=== PATIENT | female | born 1980 | race African-American/Black ===

== ENCOUNTER 2017-01-02 10:41 | Emergency (ER) | payer OTHER ==
[~2017-01-02] VITALS: Ht 157.5 cm; Wt 79.4 kg
[~2017-01-02 10:41] MED LIST: AZITHROMYCIN 2250 MG PO; CLEOCIN HCL150 MG PO; IBUPROFEN 800800 MG PO; NOHOMEMEDICATIONS; NORCO 5-325 TA1 EACH PO; PREDNISONE50 MG PO; PROAIR HFA8.5 GM IH; TUSSIONEX PENN473 ML PO; ZPAK PO
[2017-01-02 10:45] VITALS: BP 154/80
[2017-01-02] MEDS ORDERED: PROAIR HFA8.5 GM INH (11:23)
[2017-01-02] MEDS ORDERED: TUSSIONEX PENN473 ML PO (11:23)
[2017-01-02] MEDS ORDERED: PREDNISONE 20 M20 MG PO (11:23)
[2017-01-02] MEDS ORDERED: FLONASE 0.05%50 MCG NASAL (11:23)
== END 2017-01-02 11:48 | disposition home or self-care (01) ==
LOC: ER 10:41
DX: J06.9 Acute upper respiratory infection, unspecified (principal); J45.909 Unspecified asthma, uncomplicated; Z88.0 Allergy status to penicillin; F17.210 Nicotine dependence, cigarettes, uncomplicated; F10.99 Alcohol use, unspecified with unspecified alcohol-induced disorder

== ENCOUNTER 2017-01-07 19:50 | Inpatient (IN) | payer OTHER ==
[~2017-01-07] VITALS: Ht 157.5 cm; Wt 79.4 kg
--- NOTE | ~2017-01-07 | EKG ---
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 : 1980 Requested By: Ihsan Cole Order Number: [id number] MD: Justino Pierce Measurements Intervals [place] Rate: 116 P: 43 SC: 158 QRS: 6 QRSD: 104 T: 135 QT: 328 QTc: 456 Interpretive Statements Sinus tachycardia Probable left atrial enlargement LVH with secondary repolarization abnormality Baseline wander in lead(s) V4 Compared to ECG 08/02/2013 07:06:[address] and T wave abnormality is more pronounced Electronically Signed On 01-09-2017 8:37:36 CDT by Justino Pierce [email or web address] <ELECTRONICALLY SIGNED> By: Justino Pierce MD, FACC 01/09/17 0837 33 33 Justino Pierce MD, [facility] /EPI
--- NOTE | ~2017-01-07 | 2DMMODE ---
[facility] [address] [place] [address] 2 D/M-MODE ECHOCARDIOGRAM Name: THERESA COTTRELL Room #: 302-P [facility] IN .R.#: [id number] Admission: 01/08/17 Attend Phys: Cj Mario Discharge: Date of : 78 Date of Service: 01/08/17 1324 Report #: [id number] THIS REPORT FOR: //name// APPROVED REPORT Study performed: 01/08/2017 11:57:50 EXAM: Comprehensive 2D, Doppler, and color-flow Echocardiogram Patient Location: Bedside Room #: 302 Blood Pressure: 131/77 mmHg HR: 86 bpm Other Information Study Quality: Good Indications COPD Dyspnea Cardiomegaly 2D Dimensions RVDd: 44.99 mm LVEF(%): 45.83 (>50%) IVSd: 7.90 (7-11mm) LVOT Diam: 22.09 (18-24mm) LVDd: 59.84 mm PWd: 7.40 (7-11mm) Ascending Ao: 28.56 (22-36mm) LVDs: 45.91 (25-40mm) Aortic Root: 27.60 mm IVC: 23.00 mm Urbina's LVEF: 45.83 % Volumes Left Atrial Volume (Systole) Single Plane 4CH: 111.70 mL Single Plane 2CH: 73.18 mL LA ESV Index: 54.00 mL/m2 Aortic Valve AoV Peak Isidoro.: 1.64 m/s AO Peak Gr.: 10.76 mmHg LVOT Max P.67 mmHg LVOT Max V: 1.19 m/s Mitral Valve E/A Ratio: 2.2 [facility] [place] [address] 2 D/M-MODE ECHOCARDIOGRAM Name: THERESA COTTRELL Room #: 302-P [facility] IN [facility]#: [id number] Admission: 01/08/17 Attend Phys: Cj Mario Discharge: Date of : 78 Date of Service: 01/08/17 1324 Report #: [id number] MV Decel. Time: 200.84 ms MV E Max Isidoro.: 1.32 m/s MV A Isidoro.: 0.59 m/s MV PHT: 58.24 ms Pulmonary Valve PV Peak Isidoro.: 1.12 m/s PV Peak Gr.: 5.02 mmHg VA End Vmax: 1.40 m/s Pulmonary Vein P Vein S: 55.2 m/s P Vein D: 77.4 m/s P Vein A Dur.: 20.5 m/s Tricuspid Valve TR Peak Isidoro.: 4.10 m/s RAP Estimate: 10.00 mmHg TR Peak Gr.: 67.37 mmHg Left Ventricle Left ventricle is mildly dilated. There is normal left ventricular wall thickness. Left ventricular systolic function is borderline low-normal. LVEF is 50%. Right Ventricle Right ventricle is mildly dilated. The right ventricular systolic function is normal. Atria Left atrium is mildly dilated. Right atrium is at the upper limits of normal. Aortic Valve The aortic valve is normal in structure. No aortic regurgitation is present. There is no aortic valvular stenosis. Mitral Valve The mitral valve is normal in structure. Mild mitral regurgitation. No evidence of mitral valve stenosis. Tricuspid Valve The tricuspid valve is normal in structure. There is mild to moderate tricuspid regurgitation. The right atrial pressure is estimated at 10 mmHg. There is severe pulmonary hypertension. The estimated PAP was 77 mmHg. Pulmonic Valve The pulmonary valve is normal in structure. There is no pulmonic [address] [address] 2 D/M-MODE ECHOCARDIOGRAM Name: THERESA COTTRELL Room #: 302-P [facility] IN ..#: [id number] Admission: 01/08/17 Attend Phys: Cj Mario Discharge: Date of : 78 Date of Service: 01/08/17 1324 Report #: [id number] valvular regurgitation. Great Vessels The aortic root is normal in size. IVC is dilated and collapses <50% with inspiration. Pericardium There is no pericardial effusion. <Conclusion> Left ventricle is mildly dilated. Left ventricular systolic function is borderline low-normal. LVEF is 50%. Right ventricle is mildly dilated. Left atrium is mildly dilated. Mild mitral regurgitation. There is mild to moderate tricuspid regurgitation. The right atrial pressure is estimated at 10 mmHg. There is severe pulmonary hypertension. The estimated PAP was 77 mmHg. <ELECTRONICALLY SIGNED> By: Jace Gaming MD 01/08/17 1324 1324 1324 Jace Gaming MD /INF
--- NOTE | ~2017-01-07 | HC ---
[facility] [place] [address] CONSULTATION Name: SIMBATHERESA Corona Room #: 302-P [facility] IN M.R.#: [id number] Admission: 01/08/17 Attend Phys: Steve Mac MD Discharge: 01/12/17 Date of : 78 Report #: [id number] THIS REPORT FOR: //name// CC: NANY physician/PCP Yovani Mac DATE OF SERVICE: 01/09/2017 REFERRING PROVIDER: Dr. Steve Mac. REASON FOR CONSULTATION: Shortness of breath and pulmonary hypertension. HISTORY OF PRESENT ILLNESS: Our group was asked to see the patient in consultation while hospitalized at [facility]. A 36-year-old woman with a history of persistent asthma, which she states is well controlled on Qvar twice daily with as needed p.r.n. albuterol, easily exacerbated by change in seasons; however, has presented 3 times now to the emergency department with complaints of shortness of breath, some significant cough and was subsequently admitted for further evaluation on this admission for community-acquired pneumonia. She has a history of hyperthyroidism consistent with Graves' disease, previously manage elsewhere. Has also noted significant weight loss, fatigue, and periods of diaphoresis and tachycardia. She states that this is one of the other reasons that brought her into the emergency department. An echocardiogram revealed significant pulmonary hypertension with pulmonary artery systolic pressure of 70. We were asked to further evaluate. No HIV risk factors that she is aware of. No prior known history of pulmonary hypertension or cardiac diseases. OUTPATIENT MEDICATIONS: Include Flonase, Qvar, albuterol, and Tussionex. PAST MEDICAL HISTORY: 1. History of hyperthyroidism, what sounds like Grave's disease. 2. History of mild persistent asthma. 3. Ongoing tobacco use. PAST SURGICAL HISTORY: Include axillary lymph node biopsy. SOCIAL HISTORY: The patient had been an active smoker until about 2 weeks ago. No alcohol consumption. 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 FAMILY HISTORY: Significant for paternal grandmother with Graves' disease. REVIEW OF SYSTEMS: CONSTITUTIONAL: Some weight loss, occasional sweats, fever. [facility] [address] [place] [address] CONSULTATION Name: SIMBATHERESA Room #: 302-P [facility] IN .R.#: [id number] Admission: 01/08/17 Attend Phys: Steve Mac MD Discharge: 01/12/17 Date of : 78 Report #: [id number] ENT: No upper respiratory congestion. Has had some hoarseness to her voice and mild dysphagia at times. CARDIOVASCULAR: Occasional chest pains, palpitations. GASTROINTESTINAL: Occasional abdominal discomfort, diarrhea. GENITOURINARY: No dysuria, frequency, or hematuria. INTEGUMENT: Denies any rash. MUSCULOSKELETAL: Some generalized weakness and muscle aches. 12-point review of systems recently normal. PHYSICAL EXAMINATION: VITAL SIGNS: Afebrile, pulse 90s, respiratory rate 24, blood pressure 134/72, and oxygen saturation 100%. GENERAL: This is a middle-aged woman in no apparent distress. HEENT: Clear oropharynx, Mallampati 2 airway. NECK: Supple, no lymphadenopathy, denies any stridor. LUNGS: Relatively clear. No wheezes or crackles. CARDIOVASCULAR: Heart was tachycardic with lot of P2 component. No other murmurs noted. ABDOMEN: Soft, nontender, no masses. EXTREMITIES: Warm, 2+ pulses, no edema. LABORATORY DATA: Chemistry profile essentially within reason limits. Glucose of 123 and magnesium 1.5. ProBNP is 1603. White blood cell count 9000, hemoglobin 11, hematocrit 33, platelet count 208. INR 1.3. Chest x-ray reveals significant cardiomegaly. IMPRESSION: 1. Severe pulmonary hypertension, likely related to Graves' disease, but cannot rule out another autoimmune process. Would certainly need to rule out venous thromboembolism as well as other disorders. 2. Asthma with acute exacerbation. 3. Severe hyperthyroidism. RECOMMENDATIONS: 1. When able, check pulmonary emboli imaging study, preferably ventilation perfusion scan. 2. Lower extremity venous Dopplers. 3. Connective tissue screen including ANCA, RF, RICK, ESR. 4. Consider checking HIV. 5. Continue with systemic steroids. 6. P.r.n. albuterol. 7. Inhaled steroids with budesonide. 8. [place] [address] CONSULTATION Name: THERESA COTTRELL Room #: 302-P DIS IN M.R.#: [id number] Admission: 01/08/17 Attend Phys: Steve Mac MD Discharge: 01/12/17 Date of : 78 Report #: [id number] Thank you for requesting our suggestions. <ELECTRONICALLY SIGNED> By: Andrew Christina MD 01/16/17 1331 1910 1224 Andrew Christina MD /nt
[~2017-01-07 19:50] MED LIST changes: +FLONASE 0.05%50 MCG NASAL; +PREDNISONE 20 M20 MG PO; +PROAIR HFA8.5 GM INH
[2017-01-07 20:03] VITALS: BP 139/82
[2017-01-07 21:04] LABS: ABSOLUTE NEUTROPHILS 3.8 thou/uL (1.4-8.2); BASOPHILS 0.2 % (0.0-2.0); EOSINOPHILS 0.9 % (0.0-3.0); HEMATOCRIT 32.5 % (37.0-47.0); HEMOGLOBIN 10.6 gm/dL (12.0-15.0); LYMPHOCYTES 49.9 % (24.0-44.0); MCH 24.8 pg (26.0-34.0); MCHC 32.7 g/dL (28.0-37.0); MCV 75.9 fL (80.0-100.0); MONOCYTES 8.4 % (1.0-8.0); PLATELET COUNT 208 thou/uL (150-400); POLYS 40.6 % (36.0-66.0); RBC 4.29 mil/uL (4.20-5.00); RDW 15.4 % (10.5-14.5); WBC 9.2 thou/uL (4.0-11.0)
[2017-01-07 21:07] LABS: ANION GAP 9 mmol/L (7-16); BUN 5 mg/dL (7-18); CALCIUM 8.6 mg/dL (8.5-10.1); CHLORIDE 106 mmol/L (98-107); CO2 25 mmol/L (21-32); CREATININE 0.6 mg/dL (0.6-1.0); GLUCOSE 123 mg/dL (74-106); POTASSIUM 3.8 mmol/L (3.5-5.1); SODIUM 140 mmol/L (136-145)
[2017-01-07 21:08] LABS: MANUAL DIFF NO
[2017-01-07 21:15] LABS: APTT 25.9 Seconds (24.5-32.8); INR 1.3; PROTIME 13.4 Seconds (9.3-11.4)
[2017-01-07 21:18] LABS: ALBUMIN 2.8 g/dL (3.4-5.0); ALKALINE PHOSPHATASE 95 U/L (46-116); MAGNESIUM 1.5 mg/dL (1.8-2.4); NT-PRO BRAIN NAT PEPTIDE 1603 pg/mL (<300); SGOT 14 U/L (15-37); SGPT 20 U/L (30-65); TOTAL BILIRUBIN 0.3 mg/dL (<0.1-1.0); TOTAL PROTEIN 6.8 g/dL (6.4-8.2); TROPONIN-I < 0.04 ng/mL (<0.04-0.07)
[2017-01-07] MEDS ORDERED: ZOFRAN ODT8 MG PO (22:28)
[2017-01-07] MEDS ORDERED: DOXYCYCLINE 10100 MG PO (22:28)
[2017-01-08] VITALS (7 sets, daily range): BP systolic 126–139; BP diastolic 65–77
[2017-01-08 16:07] LABS: FREE T4 5.46 ng/dL (0.82-1.77)
[2017-01-09 04:10] VITALS: BP 138/79
[2017-01-09 07:54] VITALS: BP 141/73
[2017-01-09 11:33] VITALS: BP 127/64
[2017-01-09 16:20] VITALS: BP 134/72
[2017-01-09 20:00] VITALS: BP 131/86
[2017-01-10] VITALS (7 sets, daily range): BP systolic 117–163; BP diastolic 61–99
[2017-01-10 11:09] LABS: FREE T3 20.1 pg/mL (2.0-4.4)
[2017-01-11 03:30] VITALS: BP 145/83
[2017-01-11 06:21] LABS: HEMATOCRIT 34.8 % (37.0-47.0); HEMOGLOBIN 11.2 gm/dL (12.0-15.0); MCH 24.5 pg (26.0-34.0); MCHC 32.1 g/dL (28.0-37.0); MCV 76.5 fL (80.0-100.0); PLATELET COUNT 214 thou/uL (150-400); RBC 4.56 mil/uL (4.20-5.00); RDW 15.3 % (10.5-14.5); WBC 8.8 thou/uL (4.0-11.0)
[2017-01-11 06:22] LABS: MANUAL DIFF YES
[2017-01-11 08:13] VITALS: BP 127/82
[2017-01-11 08:30] LABS: TOTAL CELL COUNT 100
[2017-01-11 08:31] LABS: ABSOLUTE NEUTROPHILS 2.6 thou/uL (1.4-8.2); ANISOCYTOSIS 1+; ATYPICAL LYMPHS 3 %; OVALOCYTES FEW
[2017-01-11 13:30] VITALS: BP 122/70
[2017-01-11 16:09] LABS: c-ANCA <1:20 titer (Neg:<1:20); p-ANCA <1:20 titer (Neg:<1:20)
[2017-01-11 16:57] VITALS: BP 129/79
[2017-01-11 19:25] VITALS: BP 132/78
[2017-01-12 03:40] VITALS: BP 120/66
[2017-01-12 05:20] LABS: HEMATOCRIT 33.9 % (37.0-47.0); HEMOGLOBIN 11.3 gm/dL (12.0-15.0); MCH 25.2 pg (26.0-34.0); MCHC 33.2 g/dL (28.0-37.0); MCV 75.7 fL (80.0-100.0); PLATELET COUNT 208 thou/uL (150-400); RBC 4.47 mil/uL (4.20-5.00); RDW 14.9 % (10.5-14.5); WBC 9.5 thou/uL (4.0-11.0)
[2017-01-12 05:26] LABS: MANUAL DIFF YES
[2017-01-12 05:30] LABS: CALCIUM 8.7 mg/dL (8.5-10.1); CREATININE 0.3 mg/dL (0.6-1.0); POTASSIUM 3.7 mmol/L (3.5-5.1)
[2017-01-12 07:34] LABS: ABSOLUTE NEUTROPHILS 3.9 thou/uL (1.4-8.2); ATYPICAL LYMPHS 2 %; TOTAL CELL COUNT 100
[2017-01-12 07:35] LABS: ANISOCYTOSIS 1+
[2017-01-12 08:22] VITALS: BP 126/75
[2017-01-12 11:58] VITALS: BP 130/75
[2017-01-12 17:39] VITALS: BP 128/93
== END 2017-01-12 20:20 | disposition home or self-care (01) | DRG 189 ==
LOC: ER 19:50 → EROBS 01-08 00:17 → 3N 01-08 00:17 → ER 01-08 01:24 → 3N 01-08 01:24
PROVIDERS: Emergency Medicine; Family Medicine; Internal Medicine Endocrinology, Diabetes & Metabolism; Internal Medicine Geriatric Medicine; Internal Medicine Pulmonary Disease; Nurse Practitioner Family
DX: J96.01 Acute respiratory failure with hypoxia (principal); J45.901 Unspecified asthma with (acute) exacerbation; J44.1 Chronic obstructive pulmonary disease with (acute) exacerbation; J44.0 Chronic obstructive pulmonary disease with (acute) lower respiratory infection; E05.20 Thyrotoxicosis with toxic multinodular goiter without thyrotoxic crisis or storm; I27.2 Other secondary pulmonary hypertension; I51.7 Cardiomegaly; B37.9 Candidiasis, unspecified; E04.1 Nontoxic single thyroid nodule; E66.01 Morbid (severe) obesity due to excess calories; E83.42 Hypomagnesemia; R79.89 Other specified abnormal findings of blood chemistry; F17.210 Nicotine dependence, cigarettes, uncomplicated; Z71.6 Tobacco abuse counseling; Z59.0 Homelessness; Z88.0 Allergy status to penicillin; Z68.32 Body mass index [BMI] 32.0-32.9, adult; Z83.49 Family history of other endocrine, nutritional and metabolic diseases
CPT/HCPCS: 10096

== ENCOUNTER 2021-02-16 10:40 | Emergency (ER) | payer OTHER ==
[~2021-02-16] VITALS: Ht 157.5 cm; Wt 118.8 kg
[~2021-02-16 10:40] MED LIST changes: +CATAPRES0.1 MG PO; +DOXYCYCLINE 10100 MG PO; +LEVOXYL100 MCG PO; +NASAL DECONGEST30 ML NASAL; +ZOFRAN ODT8 MG PO
[2021-02-16] MEDS ORDERED: AZITHROMYCIN500 MG PO (11:43)
[2021-02-16] MEDS ORDERED: MAGIC MOUTHWASH SWISH&SPIT (11:43)
[2021-02-16 11:49] VITALS: BP 138/82
== END 2021-02-16 11:55 | disposition home or self-care (01) ==
LOC: ER 10:40
DX: J45.909 Unspecified asthma, uncomplicated (principal); E03.9 Hypothyroidism, unspecified; F17.210 Nicotine dependence, cigarettes, uncomplicated; Z88.0 Allergy status to penicillin

== ENCOUNTER 2021-07-15 11:30 | Emergency (ER) | payer OTHER ==
[~2021-07-15] VITALS: Ht 157.5 cm; Wt 120.2 kg
[~2021-07-15 11:30] MED LIST changes: +AZITHROMYCIN500 MG PO; +MAGIC MOUTHWASH SWISH&SPIT
[2021-07-15 11:38] VITALS: BP 142/67
[2021-07-15] MEDS ORDERED: CLARITIN10 MG PO (11:43)
[2021-07-15] MEDS ORDERED: ADVAIR 100-501 EACH INH (11:43)
[2021-07-15] MEDS ORDERED: LEVOTHYROXINE50 MCG PO (11:44)
[2021-07-15] MEDS ORDERED: TESSALON PERLE100 MG PO (13:11)
[2021-07-15] MEDS ORDERED: PREDNISONE 20 M20 MG PO (13:11)
[2021-07-15] MEDS ORDERED: NAPROSYN500 MG PO (13:14)
== END 2021-07-15 14:55 | disposition home or self-care (01) ==
LOC: ER 11:30
PROVIDERS: Emergency Medicine
DX: J45.909 Unspecified asthma, uncomplicated (principal); Z20.822 Contact with and (suspected) exposure to COVID-19; E03.9 Hypothyroidism, unspecified; F17.210 Nicotine dependence, cigarettes, uncomplicated; Z79.51 Long term (current) use of inhaled steroids; Z79.899 Other long term (current) drug therapy; Z79.891 Long term (current) use of opiate analgesic; Z88.0 Allergy status to penicillin